=== PATIENT | male | born 1970 | race Caucasian/White ===

== ENCOUNTER 2019-10-17 00:26 | Emergency (ER) | payer MEDICARE, MEDICAID, SELFPAY ==
[2019-10-17 00:35] VITALS: BP 133/68; PULSE 77; RESP 16; TEMP 36.8; O2SAT 98; BMI 25.0
--- NOTE | 2019-10-17 00:59 | XR_ITS ---
WS: [id number] PORTABLE CHEST HISTORY: dyspnea COMPARISON: 07/26/2019 Lungs are clear and well expanded. Benign granuloma RIGHT lower lobe. No pleural effusion or pneumoth orax. Cardiac size: Normal. Mediastinum/Aorta: Normal mediastinum. No osseous abnormality seen. XR/XR chest 1V portable [id number] IMPRESSION: Unremarkable portable chest.
--- NOTE | 2019-10-17 01:12 | ED_ITS ---
Entered by Gloria Smith, acting as scribe for Timmy Renee MD Oct 17, 2019 00:26 HPI - SOB/Dyspnea General: Chief Complaint: Shortness of Breath/Dyspnea Stated Complaint: SOB Time Seen by Provider: 10/17/19 01:09 Source: patient Mode of arrival: ambulatory Limitations: no limitations History of Present Illness: HPI Narrative: 49 yo m came to the er pov with family for sob. Onset was 4-5 days ago. Pt states that he can get up and move around but once he sets down he gets sob. MD elicited complaint: shortness of breath Pertinent past history: COPD Onset (ago): day(s) (today) Associated symptoms: Deny abdominal pain, chest pain, fever(s), polyuria or vomiting Review of Systems Const: Denies: fever or chills Eyes: Denies: change in vision ENMT: Denies: throat pain or mouth pain Card: Denies: chest pain Resp: Reports: shortness of breath GI: Denies: abdominal pain or vomiting Musc: Denies: back pain or joint pain Skin/Breast: Denies: rash Neuro: Denies: headache Psych: Denies: depression Endo: Denies: excessive urination Efren/Lymph: Denies: easy bruising All/Imm: Denies: hives PFSH ED PFSH: Statuses (acute, chronic, etc) shown below reflect problem list status as previously entered and may not be historically accurate Social History Smoking and tobacco status: former smoker Physical Exam Const: COMMON NORMALS: no apparent distress and healthy appearing HENMT: COMMON NORMALS: normocephalic and external nose normal HEAD & SCALP: normocephalic NOSE: external nose normal and no nasal discharge (nasal dischage) Eye: COMMON NORMALS: PERRL PUPIL: Yes PERRL Neck/C-Spine: COMMON NORMALS: full ROM and no lymphadenopathy Chest: COMMONS NORMALS: inspection of chest normal Resp: COMMON NORMALS: normal respiratory effort and clear to auscultation hannah aterally AUSCULTATION: clear to auscultation bilaterally Cardio: COMMON NORMALS: regular rate and regular rhythm RATE: regular rate RHYTHM: regular rhythm GI: COMMON NORMALS: soft to palpation PALPATION: Yes soft Extremity: COMMON NORMALS: normal to inspection, full ROM and normal capillary refill Psych: COMMON NORMALS: mental status grossly normal and cooperative Skin: COMMON NORMALS: no rashes or lesions noted GENERAL SKIN EXAM: no rashes or lesions noted Course Vital Signs: Vital signs: Vital Signs Temperature 97.6 F 10/17/19 02:48 Pulse Rate 70 10/17/19 02:48 Respiratory Rate 18 10/17/19 02:48 Blood Pressure 117/60 10/17/19 02:48 Pulse Oximetry 98 10/17/19 02:48 MDM - SOB/Dyspnea MDM Narrative: Medical decision making narrative: Patient presents here with shortness of breath that is mainly lay flat. Patient has no signs of congestive heart failure here. Patient has no signs of pulmonary embolism or acute cardiac cause. Patient is asymptomatic here and is well-appearing. X-rays normal. He is to follow-up with his primary care doctor in 3 to 5 days return to ER if worsening. He understands and agrees to plan. Lab Data: Labs: Lab Results 10/17/19 10/17/19 10/17/19 Range/Units 01:14 01:14 01:14 WBC 7.5 (4.0-10.0) 10^3/ uL RBC 4.26 (4.1-5.3) 10^6/u L Hgb 13.1 (11.7-16.6) g/dL Hct 38.6 L (42.0-52.0) % MCV 90.6 (80-94) fL MCH 30.8 (28.0-34.0) pg MCHC 33.9 (30.0-36.0) g/dL RDW 12.8 (12.1-15.1) % Plt Count 229 (130-400) 10^3/c mm MPV 10.1 (7.4-10.4) fL Neut % (Auto) 70.4 % Lymph % (Auto) 21.0 % Plumas % (Auto) 7.6 % Eos % (Auto) 0.5 % Baso % (Auto) 0.4 % Neut # (Auto) 5.3 (1.8-7.7) 10^3/u L Lymph # (Auto) 1.6 (0.8-4.8) 10^3/u L Plumas # (Auto) 0.6 (0.2-0.9) 10^3/u L Eos # (Auto) 0.0 (0.0-0.8) 10^3/u L Baso # (Auto) 0.0 (0.0-0.1) 10^3/u L Nucleated RBC % (a uto) 0 % Nucleated RBCs # 0.0 /100WBC Sodium 137 (136-145) mmol/L Potassium 3.6 (3.5-5.1) mmol/L Chloride 99 (98-107) mmol/L Carbon Dioxide 25 (22-29) mmol/L Anion Gap 16.6 (5-19) BUN 15 (6-20) mg/dL Creatinine 1.0 (0.7-1.2) mg/dL GFR Calculation 79.1 L (90-130) mL/min Glucose 121 H (74-109) mg/dL Calcium 9.7 (8.6-10.0) mg/Dl Total Bilirubin 0.3 (0.15-1.2) mg/dL AST 16 (0-40) U/L ALT 13 (0-41) U/L Alkaline Phosphata se 90 (40-130) IU/L Troponin T Baselin e 6 (0-15) ng/mL NT-Pro-B Natriuret Pep 12 (0-125) pg/mL Total Protein 7.0 (6.6-8.7) g/dL Albumin 4.7 (3.5-5.2) g/dL Globulin 2.3 (1.3-4.6) g/dL EKG Data^: EKG 1: Attestation: I personally reviewed and interpreted this EKG as follows: EKG Interpretation Date: 10/17/19 EKG interpretation time: 01:23 Interpretation: nsr hr [address] or t wave abnormalities qrs 99 qtc 398 Discharge Plan Discharge Patient Disposition: Home, Self-Care Clinical Impression: Acute dyspnea Condition: Stable Prescriptions: No Action oxycodone 10 mg Tablet 10 mg PO Q4H PRN (Reason: Pain) RF: 0 Muscle Relaxer RF: 0 Discharge Orders: Discharge Order (Routine); Ordered 10/17/19 Ordered By: Timmy Renee Referrals: Mariana Phillips, BOAT OUTFITTING SUPERVISOR-C [Primary Care Provider] - 4-7 days Discharge Diet: Advance as tolerated Discharge Activity: Resume usual activity Discharge Date/Time: 10/17/19 02:49 Coding Level of Care Code ED Small Animal Veterinarian for Chg Fwd Exam Problem Focused The documentation recorded by the Luis leblanc Stephanie Lyn, accurately reflects the service I personally performed and the decisions made by me, Timmy Renee MD Oct 17, 2019 00:26
[2019-10-17 01:23] VITALS: BP 130/69; PULSE 71; RESP 18; O2SAT 97
[2019-10-17 01:40] LABS: Basophils % 0.4 %; Eosinophils % 0.5 %; Hematocrit 38.6 % (42.0-52.0); Hemoglobin 13.1 g/dL (11.7-16.6); Lymphocytes # 1.6 10^3/uL (0.8-4.8); Mean Corpuscular HGB Conc 33.9 g/dL (30.0-36.0); Mean Corpuscular Hemoglobin 30.8 pg (28.0-34.0); Mean Corpuscular Volume 90.6 fL (80-94); Mean Platelet Volume 10.1 fL (7.4-10.4); Monocytes # 0.6 10^3/uL (0.2-0.9); Monocytes % 7.6 %; Neutrophils # 5.3 10^3/uL (1.8-7.7); Neutrophils % 70.4 %; Nucleated Red Blood Cells % 0 %; Platelet Count 229 10^3/cmm (130-400); Red Blood Count 4.26 10^6/uL (4.1-5.3); Red Cell Distribution Width 12.8 % (12.1-15.1); White Blood Count 7.5 10^3/uL (4.0-10.0)
[2019-10-17 02:08] LABS: Troponin(5th) Baseline 6 ng/mL (0-15)
[2019-10-17 02:15] LABS: Alanine Aminotransferase 13 U/L (0-41); Albumin Level 4.7 g/dL (3.5-5.2); Alkaline Phosphatase 90 IU/L (40-130); Anion Gap 16.6 (5-19); Aspartate Amino Transferase 16 U/L (0-40); Blood Urea Nitrogen 15 mg/dL (6-20); Calcium 9.7 mg/Dl (8.6-10.0); Carbon Dioxide 25 mmol/L (22-29); Chloride 99 mmol/L (98-107); Globulin 2.3 g/dL (1.3-4.6); Glomerular Filtration Rate 79.1 mL/min (90-130); Glucose 121 mg/dL (74-109); NT Pro B Type Natriuretic Pept 12 pg/mL (0-125); Potassium 3.6 mmol/L (3.5-5.1); Sodium 137 mmol/L (136-145); Total Bilirubin 0.3 mg/dL (0.15-1.2)
[2019-10-17 02:48] VITALS: BP 117/60; PULSE 70; RESP 18; TEMP 36.4; O2SAT 98
--- NOTE | 2019-10-17 07:00 | ECG_ITS ---
Measurements Intervals [place] Rate: 68 P: 41 OH: 129 QRS: 65 QRSD: 99 T: 53 QT: 381 QTc: [address] DEPRESSION [0.05+ mV ST DEPRESSION] No previous ECG available for comparison Electronically Signed On 10-17-2019 19:23:00 ANCILLARY SERVICES MANAGER THERAPY by Rhoda Bell M.D. [email or web address]
== END 2019-10-17 02:49 | disposition home or self-care (01) ==
PROVIDERS: Emergency Provider Emergency Medicine; Family Provider Nurse Practitioner; PCP Nurse Practitioner
DX: R06.00 Dyspnea, unspecified (principal); Z87.891 Personal history of nicotine dependence; R07.9 Chest pain, unspecified
CPT/HCPCS: 36415; 71045; 80053; 83880; 84484; 85025; 93005; 99282; 99283

== ENCOUNTER → 2019-10-27 09:38 | Outpatient (BNVA) | payer MEDICARE, MEDICAID, SELFPAY | PROVIDERS: Family Provider Nurse Practitioner; PCP Nurse Practitioner; Visit Provider Anesthesiology | DX: G89.29 Other chronic pain (principal); M48.061 Spinal stenosis, lumbar region without neurogenic claudication; M47.816 Spondylosis without myelopathy or radiculopathy, lumbar region; M51.37 Other intervertebral disc degeneration, lumbosacral region; G56.03 Carpal tunnel syndrome, bilateral upper limbs; J44.9 Chronic obstructive pulmonary disease, unspecified; Z79.891 Long term (current) use of opiate analgesic | CPT/HCPCS: 99214 ==

== ENCOUNTER 2019-11-09 12:36 | Outpatient (CLI) | payer MEDICARE, MEDICAID, SELFPAY ==
--- NOTE | 2019-11-09 12:45 | USCV_ITS ---
Arthur Trujillo Age: 49 Gender: M : 1970 Exam Date: 11/09/2019 13:15 Ordering Phys: Elyse Livingston Technologist: Margret Segovia [place]am Location[place] [facility] [place] Indication: PERSISTENT SHORTNESS OF BREATH. WORSE WHEN SUPINE BP: / HR: 56 Rhythm: Sinus Technical Quality: Adequate MEASUREMENTS (Male / Female) Normal Values 2D ECHO LV Diastolic Diameter PLAX 4.6 cm 4.2 - 5.9 / 3.9 - 5.3 cm LV Systolic Diameter PLAX 3.5 cm LV Chamber Size 3.9 cm IVS Diastolic Thickness 1.1 cm 0.6 - 1.0 / 0.6 - 0.9 cm IVS Systolic Thickness 1.5 cm LVPW Diastolic Thickness 1.2 cm 0.6 - 1.0 / 0.6 - 0.9 cm LVPW Systolic Thickness 1.4 cm RV Chamber Size 3.2 cm LVOT Diameter 2.1 cm LV Ejection Fraction 2D Teich 46.4 % LV Ejection Fraction MOD 2C 49.0 % LV Ejection Fraction 2C AL 46.1 % LA Diameter 3.5 cm LA Width 3.2 cm LA Height 3.9 cm RA Width 4.2 cm RA Height 3.3 cm Aorta at Sinotubular Diameter 3.5 cm M-MODE LV Diastolic Diameter MM 4.9 cm 4.2 - 5.9 / 3.9 - 5.3 cm LV Systolic Diameter MM 3.6 cm LV Ejection Fraction MM Teich 52.7 % IVS Diastolic Thickness MM 1.0 cm 0.6 - 1.0 / 0.6 - 0.9 cm IVS Systolic Thickness MM 1.5 cm LVPW Diastolic Thickness MM 0.9 cm 0.6 - 1.0 / 0.6 - 0.9 cm LVPW Systolic Thickness MM 1.3 cm RV Diastolic Diameter MM 1.9 cm Aortic Annulus Diameter 4.0 cm LA Ao Ratio MM 0.9 MV E Point Septal Separation 0.9 cm DOPPLER AV Peak Velocity 105.0 cm/s LVOT Peak Velocity 64.0 cm/s AV Area Cont Eq vti 1.9 cm squared AV Area Cont Eq pk 2.1 cm squared MV Area PHT 3.6 cm squared Mitral E to A Ratio 1.0 MV E' Velocity 11.0 cm/s Mitral E to MV E' Ratio 5.2 Mitral E to LV E' Lateral Ratio 5.3 Mitral E to LV E' Septal Ratio 5.1 TR Peak Velocity 138.1 cm/s TR Peak Gradient 7.6 mmHg TR Mean Velocity 97.8 cm/s TR Mean Gradient 4.1 mmHg TR Velocity Time Integral 33.4 cm TV Peak E Velocity 63.0 cm/s Right Atrial Pressure 3.0 mmHg Pulmonary Artery Systolic Pressu 10.6 mmHg PV Peak Velocity 72.0 cm/s RV Acceleration Time 0.2 s RV Ejection Time 0.3 s RV AcT/ET 0.6 FINDINGS Left Ventricle Normal left ventricular size, systolic function and wall thickness, with no regional wall motion abnormalities. Normal left ventricular wall thickness. Normal diastolic filling pattern. Left ventricular ejection fraction is estimated at 55 %. Right Ventricle Normal right ventricular size and systolic function. Normal right ventricular systolic pressure. Right Atrium The right atrium is normal in size. Left Atrium The left atrium is normal in size. Mitral Valve Structurally normal mitral valve without significant stenosis or prolapse. There is no mitral regurgitation. Aortic Valve Structurally normal aortic valve without significant sclerosis or stenosis. There is no aortic regurgitation. Tricuspid Valve Structurally normal tricuspid valve. Trace tricuspid valve regurgitation. Pulmonic Valve Pulmonic valve not well visualized. Pericardium Normal pericardium without effusion. Aorta Normal ascending aorta dimension. CONCLUSIONS Normal left ventricular size, systolic function and wall thickness, with no regional wall motion abnormalities. Normal left ventricular wall thickness. Normal diastolic filling pattern. Left ventricular ejection fraction is estimated at 55 %. There are no prior echocardiogram studies to compare. Dr. Abdelrahman Brown MD (Electronically Signed) Final Date: 09 November 2019 17:22 S
== END 2019-11-09 12:37 | disposition home or self-care (01) ==
LOC: US 12:39
PROVIDERS: Family Provider Nurse Practitioner; PCP Nurse Practitioner; Visit Provider Nurse Practitioner Family
DX: I07.1 Rheumatic tricuspid insufficiency (principal); R06.02 Shortness of breath; J44.9 Chronic obstructive pulmonary disease, unspecified
CPT/HCPCS: 93306

== ENCOUNTER 2019-12-05 12:00 | Outpatient (CLI) | payer MEDICARE, MEDICAID, SELFPAY | END 2019-12-05 12:01 | disposition home or self-care (01) | LOC: SLEEP 12-06 11:31 | PROVIDERS: Family Provider Nurse Practitioner; PCP Nurse Practitioner; Visit Provider Internal Medicine Critical Care Medicine | DX: G47.33 Obstructive sleep apnea (adult) (pediatric) (principal) | CPT/HCPCS: G0399 ==

== ENCOUNTER → 2019-12-20 08:55 | Outpatient (BNVA) | payer MEDICARE, MEDICAID, SELFPAY | PROVIDERS: Family Provider Nurse Practitioner; PCP Nurse Practitioner; Visit Provider Nurse Practitioner | DX: G89.29 Other chronic pain (principal); M54.5 Low back pain; Z79.891 Long term (current) use of opiate analgesic; Z87.891 Personal history of nicotine dependence | CPT/HCPCS: 99213 ==

== ENCOUNTER → 2020-04-09 08:46 | Outpatient (BNVA) | payer MEDICARE, MEDICAID, SELFPAY | PROVIDERS: Family Provider Nurse Practitioner; PCP Nurse Practitioner; Visit Provider Anesthesiology | DX: G89.29 Other chronic pain (principal); M48.061 Spinal stenosis, lumbar region without neurogenic claudication; M47.816 Spondylosis without myelopathy or radiculopathy, lumbar region; M54.16 Radiculopathy, lumbar region; M51.37 Other intervertebral disc degeneration, lumbosacral region; F17.210 Nicotine dependence, cigarettes, uncomplicated; Z79.891 Long term (current) use of opiate analgesic | CPT/HCPCS: 99214 ==

== ENCOUNTER 2020-05-15 06:44 | Outpatient (CLI) | payer MEDICARE, MEDICAID, SELFPAY ==
--- NOTE | 2020-05-15 07:15 | USCV_ITS ---
Arthur Trujillo Age: 49 Gender: M : 1970 Exam Date: 05/15/2020 07:20 Ordering Phys: Noble Bertrand MD Technologist: Keith Melton Exam Location: [facility] [place] Indication: SOB BP: 124 / 73 HR: 71 Rhythm: Sinus Technical Quality: Good MEASUREMENTS (Male / Female) Normal Values 2D ECHO LV Diastolic Diameter PLAX 4.2 cm 4.2 - 5.9 / 3.9 - 5.3 cm LV Systolic Diameter PLAX 3.2 cm IVS Diastolic Thickness 0.9 cm 0.6 - 1.0 / 0.6 - 0.9 cm IVS Systolic Thickness 1.2 cm LVPW Diastolic Thickness 1.0 cm 0.6 - 1.0 / 0.6 - 0.9 cm LVPW Systolic Thickness 1.4 cm LVOT Diameter 2.1 cm LV Ejection Fraction 2D Teich 47.5 % LV Ejection Fraction MOD 2C 62.1 % LV Ejection Fraction 2C AL 62.5 % LA Diameter 3.5 cm LA Width 3.7 cm LA Height 4.4 cm RA Width 3.4 cm RA Height 3.9 cm M-MODE LV Diastolic Diameter MM 5.7 cm 4.2 - 5.9 / 3.9 - 5.3 cm LV Systolic Diameter MM 4.2 cm LV Ejection Fraction MM Teich 52.7 % IVS Diastolic Thickness MM 0.9 cm 0.6 - 1.0 / 0.6 - 0.9 cm IVS Systolic Thickness MM 1.2 cm LVPW Diastolic Thickness MM 1.2 cm 0.6 - 1.0 / 0.6 - 0.9 cm LVPW Systolic Thickness MM 1.6 cm RV Diastolic Diameter MM 1.8 cm Aortic Annulus Diameter 3.5 cm LA Ao Ratio MM 1.0 MV E Point Septal Separation 1.5 cm DOPPLER AV Peak Velocity 114.0 cm/s LVOT Peak Velocity 87.0 cm/s AV Area Cont Eq vti 3.0 cm squared AV Area Cont Eq pk 2.6 cm squared MV Area PHT 2.7 cm squared Mitral E to A Ratio 1.3 MV E' Velocity 14.0 cm/s Mitral E to MV E' Ratio 7.0 Mitral E to LV E' Lateral Ratio 6.1 Mitral E to LV E' Septal Ratio 8.2 TR Peak Velocity 140.0 cm/s TR Peak Gradient 7.8 mmHg TV Peak E Velocity 104.0 cm/s Right Atrial Pressure 3.0 mmHg Pulmonary Artery Systolic Pressu 10.8 mmHg PV Peak Velocity 95.0 cm/s FINDINGS Left Ventricle Normal left ventricular size and systolic function, EF 59 %. No regional wall motion abnormalities. Right Ventricle Normal right ventricular size and systolic function. Right Atrium Normal right atrial size. Left Atrium Normal left atrial size. Mitral Valve Thickened mitral valve. Aortic Valve No gross abnormalities noted Tricuspid Valve No gross abnormalities noted Pulmonic Valve Structurally normal pulmonic valve without significant stenosis. There is no pulmonic regurgitation. Pericardium Normal pericardium without effusion. Aorta Normal ascending aorta dimension. CONCLUSIONS Normal left ventricular size and systolic function, EF 59 %. No regional wall motion abnormalities. No significant stenotic or regurgitant lesions. Normal cardiac chamber sizes. There is no pericardial effusion. There are no intracardiac masses. Compared to the study from 11/09/2019, there may not be a significant change Dr Gold Pacheco MD FAC (Electronically Signed) Final Date: 15 May 2020 17:12 S
== END 2020-05-15 06:45 | disposition home or self-care (01) ==
PROVIDERS: PCP Nurse Practitioner; Visit Provider Internal Medicine Critical Care Medicine
DX: R06.02 Shortness of breath (principal)
CPT/HCPCS: C8929

== ENCOUNTER → 2020-06-18 09:07 | Outpatient (BNVA) | payer MEDICARE, MEDICAID, SELFPAY | PROVIDERS: Family Provider Nurse Practitioner; PCP Nurse Practitioner; Visit Provider Anesthesiology | DX: G89.29 Other chronic pain (principal); M48.061 Spinal stenosis, lumbar region without neurogenic claudication; M47.816 Spondylosis without myelopathy or radiculopathy, lumbar region; M54.16 Radiculopathy, lumbar region; M51.37 Other intervertebral disc degeneration, lumbosacral region; F17.210 Nicotine dependence, cigarettes, uncomplicated; Z79.891 Long term (current) use of opiate analgesic | CPT/HCPCS: 99213; 99214 ==

== ENCOUNTER → 2020-07-05 11:30 | Outpatient (BNVA) | payer MEDICARE, MEDICAID, SELFPAY | PROVIDERS: PCP Nurse Practitioner; Visit Provider Internal Medicine | DX: Z20.828 Contact with and (suspected) exposure to other viral communicable diseases (principal) | CPT/HCPCS: 87635 ==

== ENCOUNTER 2020-07-08 06:49 | Outpatient (CLI) | payer MEDICARE, MEDICAID, SELFPAY ==
--- NOTE | 2020-07-08 14:19 | PFTS_ITS ---
Date of Study:07/08/20 Date of Dictation: MECHANICS: Forced vital capacity (FVC) is normal. Forced expiratory volume in one second (FEV1) is normal. FEV1/FVC is normal. FLOW VOLUME LOOP: Normal. LUNG VOLUMES: Not measured DIFFUSING CAPACITY FOR CARBON MONOXIDE: Not measured The maximal voluntary ventilation, maximal expiratory inspiratory pressures are normal. INTERPRETATION: Spirometry is normal. The maximal voluntary ventilation, maximal expiratory and inspiratory pressures are normal. MTDD
== END 2020-07-08 06:50 | disposition home or self-care (01) ==
LOC: RT 06:52
PROVIDERS: PCP Nurse Practitioner; Visit Provider Internal Medicine Critical Care Medicine
DX: R06.02 Shortness of breath (principal)
CPT/HCPCS: 94010

== ENCOUNTER 2020-07-23 20:00 | Outpatient (CLI) | payer MEDICARE, MEDICAID, SELFPAY | END 2020-07-23 20:01 | disposition home or self-care (01) | LOC: SLEEP 07-24 08:13 | PROVIDERS: PCP Nurse Practitioner; Visit Provider Internal Medicine Critical Care Medicine | DX: G47.30 Sleep apnea, unspecified (principal) | CPT/HCPCS: 95811 ==

== ENCOUNTER → 2020-08-13 09:09 | Outpatient (BNVA) | payer MEDICARE, MEDICAID, SELFPAY | PROVIDERS: Family Provider Nurse Practitioner; PCP Nurse Practitioner; Visit Provider Anesthesiology | DX: G89.29 Other chronic pain (principal); M48.061 Spinal stenosis, lumbar region without neurogenic claudication; M47.816 Spondylosis without myelopathy or radiculopathy, lumbar region; M54.16 Radiculopathy, lumbar region; M51.37 Other intervertebral disc degeneration, lumbosacral region; F17.210 Nicotine dependence, cigarettes, uncomplicated; Z79.891 Long term (current) use of opiate analgesic | CPT/HCPCS: 99213; 99214 ==

== ENCOUNTER → 2020-10-15 09:42 | Outpatient (BNVA) | payer MEDICARE, MEDICAID, SELFPAY | PROVIDERS: Family Provider Nurse Practitioner; PCP Nurse Practitioner; Visit Provider Anesthesiology | DX: G89.29 Other chronic pain (principal); M48.061 Spinal stenosis, lumbar region without neurogenic claudication; M47.816 Spondylosis without myelopathy or radiculopathy, lumbar region; M51.37 Other intervertebral disc degeneration, lumbosacral region; M54.16 Radiculopathy, lumbar region; F17.210 Nicotine dependence, cigarettes, uncomplicated; Z79.891 Long term (current) use of opiate analgesic | CPT/HCPCS: 99213 ==

== ENCOUNTER → 2020-12-05 08:21 | Outpatient (BNVA) | payer MEDICARE, MEDICAID, SELFPAY | PROVIDERS: Family Provider Nurse Practitioner; PCP Nurse Practitioner; Visit Provider Anesthesiology | DX: G89.29 Other chronic pain (principal); M54.16 Radiculopathy, lumbar region; M48.061 Spinal stenosis, lumbar region without neurogenic claudication; M47.816 Spondylosis without myelopathy or radiculopathy, lumbar region; M51.37 Other intervertebral disc degeneration, lumbosacral region; F17.210 Nicotine dependence, cigarettes, uncomplicated; Z79.891 Long term (current) use of opiate analgesic | CPT/HCPCS: 62323 ==

== ENCOUNTER → 2020-12-17 09:29 | Outpatient (BNVA) | payer MEDICARE, MEDICAID, SELFPAY | PROVIDERS: Family Provider Nurse Practitioner; PCP Nurse Practitioner; Visit Provider Anesthesiology | DX: G89.29 Other chronic pain (principal); M48.061 Spinal stenosis, lumbar region without neurogenic claudication; M47.816 Spondylosis without myelopathy or radiculopathy, lumbar region; M51.37 Other intervertebral disc degeneration, lumbosacral region; M54.16 Radiculopathy, lumbar region; F17.210 Nicotine dependence, cigarettes, uncomplicated; Z79.891 Long term (current) use of opiate analgesic | CPT/HCPCS: 99213 ==

== ENCOUNTER → 2021-01-03 11:19 | Outpatient (BNVA) | payer MEDICARE, MEDICAID, SELFPAY | PROVIDERS: Family Provider Nurse Practitioner; PCP Nurse Practitioner; Visit Provider Nurse Practitioner | DX: Z12.5 Encounter for screening for malignant neoplasm of prostate (principal); J44.9 Chronic obstructive pulmonary disease, unspecified; Z13.6 Encounter for screening for cardiovascular disorders; G47.00 Insomnia, unspecified; Z89.511 Acquired absence of right leg below knee | CPT/HCPCS: 80053; 80061; 81000; G0103 ==

== ENCOUNTER → 2021-02-19 08:40 | Outpatient (BNVA) | payer MEDICARE, MEDICAID, SELFPAY | PROVIDERS: Family Provider Nurse Practitioner; PCP Nurse Practitioner; Visit Provider Nurse Practitioner | DX: G89.29 Other chronic pain (principal); M54.16 Radiculopathy, lumbar region; M51.37 Other intervertebral disc degeneration, lumbosacral region; M48.061 Spinal stenosis, lumbar region without neurogenic claudication; M47.816 Spondylosis without myelopathy or radiculopathy, lumbar region; Z89.511 Acquired absence of right leg below knee; F17.210 Nicotine dependence, cigarettes, uncomplicated; Z79.891 Long term (current) use of opiate analgesic; Z71.6 Tobacco abuse counseling | CPT/HCPCS: 99213; 99214 ==

== ENCOUNTER → 2021-04-18 08:44 | Outpatient (BNVA) | payer MEDICARE, MEDICAID, SELFPAY | PROVIDERS: Family Provider Nurse Practitioner; PCP Nurse Practitioner; Visit Provider Nurse Practitioner | DX: G89.29 Other chronic pain (principal); M54.16 Radiculopathy, lumbar region; M51.37 Other intervertebral disc degeneration, lumbosacral region; M48.061 Spinal stenosis, lumbar region without neurogenic claudication; M47.816 Spondylosis without myelopathy or radiculopathy, lumbar region; F17.210 Nicotine dependence, cigarettes, uncomplicated; Z79.891 Long term (current) use of opiate analgesic; Z71.6 Tobacco abuse counseling | CPT/HCPCS: 99214; 99406 ==

== ENCOUNTER → 2021-06-19 09:19 | Outpatient (BNVA) | payer MEDICARE, MEDICAID, SELFPAY | PROVIDERS: Family Provider Nurse Practitioner; PCP Nurse Practitioner; Visit Provider Nurse Practitioner | DX: G89.29 Other chronic pain (principal); M54.16 Radiculopathy, lumbar region; M51.37 Other intervertebral disc degeneration, lumbosacral region; M47.816 Spondylosis without myelopathy or radiculopathy, lumbar region; M48.061 Spinal stenosis, lumbar region without neurogenic claudication; F17.210 Nicotine dependence, cigarettes, uncomplicated; Z79.891 Long term (current) use of opiate analgesic; Z71.6 Tobacco abuse counseling | CPT/HCPCS: 99214 ==

== ENCOUNTER → 2021-07-03 08:42 | Outpatient (BNVA) | payer MEDICARE, MEDICAID, SELFPAY | PROVIDERS: Family Provider Nurse Practitioner; PCP Nurse Practitioner; Visit Provider Anesthesiology | DX: G89.29 Other chronic pain (principal); M47.816 Spondylosis without myelopathy or radiculopathy, lumbar region; M48.061 Spinal stenosis, lumbar region without neurogenic claudication; M51.37 Other intervertebral disc degeneration, lumbosacral region; M54.16 Radiculopathy, lumbar region; Z79.891 Long term (current) use of opiate analgesic | CPT/HCPCS: 62323; J1040; J3490 ==

== ENCOUNTER → 2021-07-09 08:10 | Outpatient (BNVA) | payer MEDICARE, MEDICAID, SELFPAY | PROVIDERS: Family Provider Nurse Practitioner; PCP Nurse Practitioner; Visit Provider Nurse Practitioner | DX: Z13.6 Encounter for screening for cardiovascular disorders (principal) | CPT/HCPCS: 80053; 80061; 85025 ==

== ENCOUNTER → 2021-08-19 09:05 | Outpatient (BNVA) | payer MEDICARE, MEDICAID, SELFPAY | PROVIDERS: Family Provider Nurse Practitioner; PCP Nurse Practitioner; Visit Provider Anesthesiology | DX: G89.29 Other chronic pain (principal); M48.061 Spinal stenosis, lumbar region without neurogenic claudication; M47.816 Spondylosis without myelopathy or radiculopathy, lumbar region; M51.37 Other intervertebral disc degeneration, lumbosacral region; M54.16 Radiculopathy, lumbar region; F17.200 Nicotine dependence, unspecified, uncomplicated; Z79.891 Long term (current) use of opiate analgesic; Z71.6 Tobacco abuse counseling | CPT/HCPCS: 99214 ==

== ENCOUNTER → 2021-10-07 10:12 | Outpatient (BNVA) | payer MEDICARE, MEDICAID, SELFPAY | PROVIDERS: Family Provider Nurse Practitioner; PCP Nurse Practitioner; Visit Provider Anesthesiology | DX: G89.29 Other chronic pain (principal); M48.061 Spinal stenosis, lumbar region without neurogenic claudication; M47.816 Spondylosis without myelopathy or radiculopathy, lumbar region; M51.37 Other intervertebral disc degeneration, lumbosacral region; M54.16 Radiculopathy, lumbar region; F17.200 Nicotine dependence, unspecified, uncomplicated; Z79.891 Long term (current) use of opiate analgesic | CPT/HCPCS: 99214 ==

== ENCOUNTER → 2022-01-05 09:48 | Outpatient (BNVA) | payer MEDICARE, MEDICAID, SELFPAY | PROVIDERS: Family Provider Nurse Practitioner; PCP Nurse Practitioner; Visit Provider Internal Medicine Critical Care Medicine | DX: J98.4 Other disorders of lung (principal); R06.02 Shortness of breath; G47.30 Sleep apnea, unspecified; F17.210 Nicotine dependence, cigarettes, uncomplicated | CPT/HCPCS: 99214 ==

== ENCOUNTER 2022-02-02 09:08 | Outpatient (CLI) | payer MEDICARE, MEDICAID, SELFPAY ==
--- NOTE | 2022-02-02 09:25 | MR_ITS ---
WS: [id number] MRI LUMBAR SPINE NONCONTRAST TECHNIQUE: Sagittal T1, T2 and STIR imaging. Axial T1 and T2 imaging. CLINICAL INFORMATION: LUMBAR DDD COMPARISON: July 22, 2018 FINDINGS: Mild lumbar curve. No acute compression. Disc space narrowing worse L5-S1 with endplate degenerative changes. This is similar in appearance to 2018. Alignment is unchanged. L1-L2: Normal. L2-L3: Mild annular bulging. Shallow central protrusion with slight effacement of ventral thecal sac. Impingement traversing LEFT L3 nerve root. Small LEFT foraminal protrusion with mild LEFT foraminal narrowing. RIGHT foramen is patent. L3-L4: Mild annular bulging. Mild facet arthropathy. Spinal canal and foramen are patent. L4-L5: Mild annular bulging with slight effacement of ventral thecal sac. Slight impingement traversi ng L5 nerve roots bilaterally. Mild to moderate facet arthropathy. Foramen are patent. L5-S1: Mild disc bulging with osteophytic ridging. Slight impingement traversing S1 nerve roots bilat erally. Mild facet arthropathy. Mild bilateral foraminal narrowing. Visualized pelvic bony structures: Normal. Paravertebral soft tissues: Normal. MR/MR lumbar spine wo con* [id number] IMPRESSION: 1. Mild lumbar curve. No acute compression. No high-grade central canal stenos is. 2. Mild annular bulging L2-L3 with impingement on the LEFT subarticular recess and traversing LEFT L3 nerve root progressed slightly compared to previous. Mi ld LEFT L2-L3 foraminal narrowing. 3. Mild annular bulging L4-L5 with slight impingement traversing L5 nerve root s bilaterally LEFT greater than RIGHT. This is slightly progressed compared to previous 4. Mild annular bulge L5-S1 with osteophytic ridging. Slight impingement trave rsing S1 nerve roots bilaterally appears unchanged. Mild bilateral foraminal na rrowing.
== END 2022-02-02 09:09 | disposition home or self-care (01) ==
LOC: RAD 09:11
PROVIDERS: PCP Nurse Practitioner; Visit Provider General Practice
DX: M51.36 Other intervertebral disc degeneration, lumbar region (principal)
CPT/HCPCS: 72148

== ENCOUNTER → 2022-04-27 11:24 | Outpatient (BNVA) | payer MEDICARE, MEDICAID, SELFPAY | PROVIDERS: PCP Family Medicine; Visit Provider Nurse Practitioner | DX: J44.9 Chronic obstructive pulmonary disease, unspecified (principal); Z89.511 Acquired absence of right leg below knee; Z12.5 Encounter for screening for malignant neoplasm of prostate; Z13.6 Encounter for screening for cardiovascular disorders; F17.200 Nicotine dependence, unspecified, uncomplicated | CPT/HCPCS: 80053; 80061; 85025; G0103 ==

== ENCOUNTER 2022-06-16 20:00 | Outpatient (CLI) | payer MEDICARE, MEDICAID, SELFPAY | END 2022-06-16 20:01 | disposition home or self-care (01) | LOC: SLEEP 06-17 08:41 | PROVIDERS: PCP Family Medicine; Visit Provider Specialist | DX: G47.33 Obstructive sleep apnea (adult) (pediatric) (principal) | CPT/HCPCS: 95810 ==

== ENCOUNTER → 2022-07-16 08:43 | Outpatient (BNVA) | payer MEDICARE, MEDICAID, SELFPAY | PROVIDERS: PCP Family Medicine; Visit Provider Nurse Practitioner | DX: J44.9 Chronic obstructive pulmonary disease, unspecified (principal); E78.1 Pure hyperglyceridemia; F17.200 Nicotine dependence, unspecified, uncomplicated | CPT/HCPCS: 80061; 85025 ==

== ENCOUNTER → 2022-10-13 09:51 | Outpatient (BNVA) | payer MEDICARE, MEDICAID, SELFPAY | PROVIDERS: PCP Family Medicine; Visit Provider Nurse Practitioner | DX: J44.9 Chronic obstructive pulmonary disease, unspecified (principal); F17.200 Nicotine dependence, unspecified, uncomplicated | CPT/HCPCS: 71046; 80053; 85025 ==

== ENCOUNTER → 2022-10-21 10:27 | Outpatient (BNVA) | payer MEDICARE, MEDICAID, SELFPAY | PROVIDERS: PCP Family Medicine; Visit Provider Internal Medicine Pulmonary Disease | DX: R06.09 Other forms of dyspnea (principal); J98.4 Other disorders of lung; J44.9 Chronic obstructive pulmonary disease, unspecified; F17.210 Nicotine dependence, cigarettes, uncomplicated; G47.33 Obstructive sleep apnea (adult) (pediatric) | CPT/HCPCS: 99214 ==

== ENCOUNTER 2023-01-11 06:01 | Outpatient (CLI) | payer MEDICARE, MEDICAID, SELFPAY ==
--- NOTE | 2023-01-11 | ECG_ITS ---
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 Interpretive Statements NAME OF STUDY: LEXISCAN SESTAMIBI STRESS TEST INDICATION: [Dyspnea; Chest Pain, ] Procedure: At the baseline, the blood pressure was 114/63 mmHg with a heart rate of 56 bpm. The electrocardiogram showed sinus bradycardia, normal axis with normal ST and T's. The Lexiscan was infused over a period of 20 seconds. A total of 0.4 mg of Lexiscan was infused. The stress phase was continued for a total of 5 minutes. Heart rate was at the end of stress phase was 79 bpm and a blood pressure of 109/59 mmHg. The EKG at the peak infusion revealed normal sinus rhythm with no significant ST-T wave changes. Sestamibi was injected 20 seconds after the Lexiscan infusion. Blood pressure at the end of recovery phase was 104/59 mmHg with a heart rate of 71 bpm. Conclusion: 1. Normal EKG response to Lexiscan infusion 2. No Lexiscan induced chest pain or cardiac arrhythmia. 3. Normal blood pressure and heart rate response. 4. Sestamibi/sestamibi perfusion scan pending; see separate report. Electronically Signed On 01-17-2023 14:50:30 CDT by Mani Barba M.D. [email or web address]
[2023-01-11 06:39] VITALS: BMI 26.2
--- NOTE | 2023-01-11 06:44 | NMCV_ITS ---
NM murali perf SPECT r/s* [id number] Arthur Trujillo Age: 52 Gender: M : 1970 Exam Date: 01/11/2023 07:11 Ordering Phys: Flip Saha MD Technologist: IZAIAH Chatterjee Exam Location: [facility] [place] Indications: SHORTNESS OF BREATH, NICOTINE DEPENDENCE STRESS TEST Please see separate stress test report in [facility] for full findings IMAGE PROTOCOL Rest/Stress 1 Lexiscan Day Radiopharmaceutical Dose (mCi) Administration Site Administered by Rest: Tc-99m 10.6 IV IZAIAH Boudreaux Sestamibi Stress:Tc-99m 32.4 IV IZAIAH Boudreaux Sestamibi Rest: 11-Jan-2023 60 Discovery 630 Stress: 11-Jan-2023 30 Discovery 630 0.4mg Lexiscan. Images obtained in supine and prone position. SPECT RESULTS Technical Quality: Excellent Raw Data Analysis: Normal Image Corrections: No attenuation or motion correction applied Summed Stress Score: 5 Summed Rest Score: 1 Summed Difference Score: 4 PERFUSION FINDINGS There is a medium sized area of partially reversible perfusion defect noted in the inferolateral and apical inferior wall. This is consistent with prior infarct with significant mayra-infarct ischemia in the left circumflex artery territory. FUNCTIONAL RESULTS (calculated via Gated SPECT) Stress Image LV EF (%): 58 Stress EDV (mL):128 TID: 1.17 Stress ESV (mL):54 FUNCTIONAL FINDINGS: There is normal left ventricular systolic function. IMPRESSIONS 1. 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 LV systolic function is normal Mani Barba MD (Electronically Signed) Final Date: 16 January 2023 10:47 S
[2023-01-11] MEDS: regadenoson 0.4 Mg/5 ml Syringe IVP (07:44)
[2023-01-11 07:57] VITALS: BP 104/59; PULSE 73
== END 2023-01-11 06:02 | disposition home or self-care (01) ==
PROVIDERS: PCP Family Medicine; Visit Provider Internal Medicine Pulmonary Disease
DX: R06.00 Dyspnea, unspecified (principal); R06.02 Shortness of breath; F17.210 Nicotine dependence, cigarettes, uncomplicated
CPT/HCPCS: 36415; 78452; 93017; 96374; A9500; J2785

== ENCOUNTER → 2023-02-08 12:22 | Outpatient (BNVA) | payer MEDICARE, MEDICAID, SELFPAY | PROVIDERS: PCP Family Medicine; Visit Provider Internal Medicine | DX: R06.09 Other forms of dyspnea (principal); F17.210 Nicotine dependence, cigarettes, uncomplicated | CPT/HCPCS: 93005; 99204 ==

== ENCOUNTER → 2023-04-09 09:16 | Outpatient (BNVA) | payer MEDICARE, MEDICAID, SELFPAY | PROVIDERS: PCP Family Medicine; Visit Provider Nurse Practitioner | DX: J44.9 Chronic obstructive pulmonary disease, unspecified (principal); E78.1 Pure hyperglyceridemia; F17.210 Nicotine dependence, cigarettes, uncomplicated; F17.200 Nicotine dependence, unspecified, uncomplicated | CPT/HCPCS: 80053; 80061; 85025 ==

== ENCOUNTER 2023-05-11 08:54 | Outpatient (CLI) | payer MEDICARE, MEDICAID, SELFPAY ==
--- NOTE | 2023-05-11 09:00 | CT_ITS ---
WS: [id number] LDCT LUNG CANCER SCREENING HISTORY: F17.210 - Nicotine dependence, cigarettes, uncomplicated TECHNIQUE: Axial imaging performed from the apices to 1 cm below the costophrenic angles. Coronal and sagittal reformats are submitted with axial MIP series. All CT scans at [facility] use at least one of these dose optimization techniques: automated exposure control; mA and/or kV adjustment per patient size (includes targeted exams where dose is matched to clinical indication); or iterativ e reconstruction. DLP: 63.39 mGy.cm DIvol: Mean CTDIvol: 1.20 (mGy) COMPARISON: 08/23/2019 Diagnostic quality: Satisfactory Lungs: Less than 3 mm nodule LEFT apex. Benign granuloma RIGHT lower lobe with focal scar. No pulmona ry mass or additional nodules. No pneumonia. No endobronchial lesions. Mild pulmonary hyperexpansion from centrilobular emphysema. Heart: Normal size heart with no pericardial effusion.. Other findings: No mediastinal widening or adenopathy. Mild increase in thoracic kyphosis. CT/CT lung screening [id number] IMPRESSION: LUNG-RADS: 2-Benign Appearance or Behavior FOLLOW UP: 12 Month: Continue annual screening with LDCT OTHER FINDINGS (S MODIFIER): None.
== END 2023-05-11 08:55 | disposition home or self-care (01) ==
LOC: RAD 08:56
PROVIDERS: PCP Family Medicine; Visit Provider Nurse Practitioner
DX: Z12.2 Encounter for screening for malignant neoplasm of respiratory organs (principal); F17.210 Nicotine dependence, cigarettes, uncomplicated
CPT/HCPCS: 71271; 80053; 80061; 85025

== ENCOUNTER → 2023-11-02 11:41 | Outpatient (BNVA) | payer MEDICARE, MEDICAID, SELFPAY | PROVIDERS: PCP Family Medicine; Visit Provider Nurse Practitioner | DX: J44.9 Chronic obstructive pulmonary disease, unspecified (principal); F17.200 Nicotine dependence, unspecified, uncomplicated; E78.1 Pure hyperglyceridemia; F32.9 Major depressive disorder, single episode, unspecified | CPT/HCPCS: 80053; 80061; 82607 ==

== ENCOUNTER → 2024-01-03 09:24 | Outpatient (BNVA) | payer MEDICARE, MEDICAID, SELFPAY | PROVIDERS: PCP Nurse Practitioner; Visit Provider Nurse Practitioner | DX: N18.2 Chronic kidney disease, stage 2 (mild); R73.9 Hyperglycemia, unspecified | CPT/HCPCS: 80048; 83036 ==

== ENCOUNTER 2024-01-25 13:56 | Outpatient (CLI) | payer MEDICARE, MEDICAID, SELFPAY ==
--- NOTE | 2024-01-25 14:15 | US_ITS ---
WS: [id number] RENAL ULTRASOUND HISTORY: N18.2 - Chronic kidney disease, stage 2 (mild) COMPARISON: None available. TECHNIQUE: 2-D and color Doppler imaging of the kidney submitted. Right kidney: 11.1 cm x 5.6 cm x 4.8 cm. Cortex: 1.5 cm Normal echogenicity with no hydronephrosis or mass. Left kidney: 10.9 cm x 5.3 cm x 4.5 cm. Cortex: 2.5 cm Normal echogenicity with no hydronephrosis or mass. Aorta: Normal. Urinary Bladder: Normal distention. IMPRESSION: Normal renal ultrasound.
== END 2024-01-25 13:57 | disposition home or self-care (01) ==
LOC: RAD 13:57
PROVIDERS: PCP Nurse Practitioner; Visit Provider Nurse Practitioner
DX: N18.2 Chronic kidney disease, stage 2 (mild) (principal)
CPT/HCPCS: 76770

== ENCOUNTER → 2024-05-31 09:41 | Outpatient (BNVA) | payer MEDICARE, MEDICAID, SELFPAY | PROVIDERS: PCP Nurse Practitioner; Visit Provider Nurse Practitioner | DX: N18.2 Chronic kidney disease, stage 2 (mild) (principal) | CPT/HCPCS: 80053; 83735 ==

== ENCOUNTER → 2024-11-22 09:02 | Outpatient (BNVA) | payer MEDICARE, MEDICAID, SELFPAY | PROVIDERS: PCP Nurse Practitioner; Visit Provider Nurse Practitioner | DX: F41.1 Generalized anxiety disorder (principal); F17.200 Nicotine dependence, unspecified, uncomplicated; J44.9 Chronic obstructive pulmonary disease, unspecified; E78.1 Pure hyperglyceridemia | CPT/HCPCS: 80053 ==

== ENCOUNTER → 2025-05-16 12:33 | Outpatient (BNVA) | payer MEDICARE, MEDICAID, SELFPAY | PROVIDERS: PCP Nurse Practitioner; Visit Provider Nurse Practitioner | DX: E78.1 Pure hyperglyceridemia (principal); Z12.5 Encounter for screening for malignant neoplasm of prostate; N18.2 Chronic kidney disease, stage 2 (mild); E55.9 Vitamin D deficiency, unspecified | CPT/HCPCS: 80053; 80061; 82306; G0103 ==

== ENCOUNTER 2025-05-26 22:17 | Emergency (ER) | payer MEDICARE, MEDICAID, SELFPAY ==
--- OUTSIDE RECORDS SUMMARY | 2024-08-05 04:00 | XMS_ITS ---
Author Organization [facility] Address [address] [place] [address] Care Team Providers Care Payroll Master Name Role Phone Cali Rehman Unavailable [phone] Migration, Provider Unavailable Unavailable REASON FOR VISIT EMR-Vivek Encounters Encounter Location Date Provider Diagnosis Migrated_Facility 0 0 08/05/2024 Provider Migration Plan Of Treatment Medication Medication Name Sig Start Date Stop Date Notes Xtampza ER 13.5 mg oral capsule,sprinkle,ER 12hr tmprr 1 Capsule Twice a Day 03/03/2022 04/02/2022 *Reorder from [facility] for eRx and Interaction Alerts* oxyCODONE HCl 10 MG Tablet 1 Tablet Every 6 Hours PRN Oral 03/03/2022 04/02/2022 Progress Notes * Arthur TRUJILLO LDOB:1970 (54 yo M)Acc No.[id number]:08/05/2024 Patient: Arthur SPICER :1970 A ge:54 Y S ex:Male Address:[address] [place] [id number] * Refills Stop oxyCODONE HCl Tablet, 10 MG, Oral, 1 Tablet Every 6 Hours PRN Stop Xtampza ER 13.5 mg oral capsule,sprinkle,ER 12hr tmprr, 1 Capsule Twice a Day Subjective: * Chief Complaints: * E MR-Vivek * * Date:
--- OUTSIDE RECORDS SUMMARY | 2024-08-06 04:00 | XMS_ITS ---
Author Organization [facility] Address [address] [place] [address] Care Team Providers Care Lead Pastor Name Role Phone Cali Rehman Unavailable [phone] Migration, Provider Unavailable Unavailable REASON FOR VISIT [facility] [place] Medication SIG (Take, Route, Frequency, Duration) Notes Start Date End Date Status Lansoprazole *[facility]* Active Tylenol *[facility] for [facility]* Active Albuterol Sulfate *[facility] -form [facility]* Active Social History Social History Additional Details Category Social Info Options Details Migrated Social History Migrated Social History Alcoholic beverages? - No, Applying for disability? - No, Currently on disability? - Yes, Drug or substance abuse? - No, Education - Grade School, exposure to toxins/poisonous substances at work - No, I am interested in quitting. - Yes, Involved in any legal proceedings or lawsuits? - No, Marital Status - single, Nonprescription drug use? - No, Participation in detoxification or rehabilitation - No, Smoking - 1/2 PPD, Smoking status (MU) - Current every day smoker, Working currently? - No Encounters Encounter Location Date Provider Diagnosis Migrated_Facility 0 0 08/06/2024 Provider Migration Plan Of Treatment No Information Progress Notes * Arthur TRUJILLO LDOB:1970 (54 yo M)Acc No.[id number]:08/06/2024 Patient: Arthur SPICER Ariel :1970 A ge:54 Y S ex:Male Address:[address] [place] [id number] Subjective: * Chief Complaints: * E MR-Vivek * Medical History: Depressed, M igraine, * Social History: M igrated Social History: M igrated Social History: Alcoholic beverages? - No, A pplying for disability? - No, C urrently on disability? - Yes, D rug or substance abuse? - No, E ducation - Grade School, e xposure to toxins/poisonous substances at work - No, I am interested in quitting. - Yes, I nvolved in any legal proceedings or lawsuits? - No, M arital Status - single, N onprescription drug use? - No, P articipation in detoxification or rehabilitation - No, S moking - 1/2 PPD, S moking status (MU) - Current every day smoker, W orking currently? - No. * Medications: T akingLansoprazole , Notes to Pharmacist: *Pick strength-form from [facility] for eRX*Albuterol Sulfate , Notes to Pharmacist: *Pick strength-form from [facility] for eRX*Tylenol , Notes to Pharmacist: *Pick strength-form from [facility] for eRX*Taking Lansoprazole , Notes to Pharmacist: *Pick strength-form from [facility] for eRX*Taking Albuterol Sulfate , Notes to Pharmacist: *Pick strength-form from [facility] for eRX*Taking Tylenol , Notes to Pharmacist: *Pick strength-form from [facility] for eRX* * * Date:
[2025-05-26 22:23] VITALS: BP 137/80; PULSE 100; RESP 18; TEMP 36.8; O2SAT 98; BMI 26.3
--- OUTSIDE RECORDS SUMMARY | 2025-05-26 22:26 | XMS_ITS | Patient Health Record ---
Author Organization [facility] Address [address] [place] [address] Care Team Providers Care Document Processor Name Role Phone Cali Rehman Unavailable [phone] Migration, Provider Unavailable Unavailable Reason For Referral No Information Medications Medication SIG (Take, Route, Frequency, Duration) Notes Start Date End Date Status Lansoprazole *Pick strength-f orm from [employer] for eRX* Active oxyCODONE HCl Active Tylenol *Pick strength-f orm from [employer] for eRX* Active Albuterol Sulfate *Pick strength -form from [employer] for eRX* Active Social History Tobacco Use: Social History Observation Description Date Details (start date - stop date) Current Smoker NA - NA Social History Drugs/Alcohol: Social Info Question Answer Notes Alcohol Screen (Audit-C) Did you have a drink containing alcohol in the past year? No Points 0 Interpretation Negative Drugs Have you used drugs other than those for medical reasons in the past 12 months? No Tobacco Use: Social Info Question Answer Notes xTobacco Use/Smoking Are you a current smoker How often do you smoke cigarettes? every day How many cigarettes a day do you smoke? 11-20 Additional Details Category Social Info Options Details [...] every day smoker, Working currently? - No Problems Problem Type SNOMED Code ICD Code Onset Dates Problem Status W/U Status Risk Notes Problem Degeneration of lumbar intervertebral disc (23044868) Degenerative disc disease, lumbar (M51.36) Active confirmed Encounters Encounter Location Date Provider Diagnosis Migrated_Facility 0 0 08/05/2024 Provider Migration Migrated_Facility 0 0 08/06/2024 Provider Migration Plan Of Treatment No Information Insurance Providers Payer Name Payer Address Payer Phone Subscriber Number Group Number Insured Name Patient Relationship to Insured Coverage Start Date Coverage End Date [employer] Commercial - Out of Network [address] [address] [place] [address] [id number] Arthur Trujillo Self - patient is the insured [place] Medicaid [address] [place] [address] [id number] Arthur Trujillo Self - patient is the insured [place] [address] [facility] [place] [address] [id number] Ronnie Arthur Self - patient is the insured Medical (General) History Medical History History ICD Code COPD Depression
--- OUTSIDE RECORDS SUMMARY | 2025-05-26 22:26 | XMS_ITS | Encounter Summary ---
Author Organization [facility] Address [address] [place] [address] Care Team Providers Care Technical Mgr Name Role Phone Jorge Prabhakar MD Primary Care Provider [phone] Encounter Details Date Type Department Care Team (Late st Contact Info) Description 05/22/2025 External Device Data [facility]STRACTION Provider, Abstract NO ADDRESS ON FILE Social History Tobacco Use Types Packs/Day Years Used Date Smoking Tobacco: Every Day Cigarettes Smokeless Tobacco: Never Alcohol Use Standard Drinks/Week Comments Not Currently 0 (1 standard drink = 0.6 oz pur e alcohol) Sex and Gender Information Value Date Recorded Sex Assigned at Not on file 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
--- OUTSIDE RECORDS SUMMARY | 2025-05-26 22:26 | XMS_ITS | Encounter Summary ---
Author Organization [facility] Address [address] [place] [address] Care Team Providers Care Sales Superintendent Name Role Phone Jorge Prabhakar MD Primary Care Provider [phone] Reason for Visit * Reason Onset Date Comments Referral 05/16/2025 Pain Management Patient Communication Encounter Details Date Type Department Care Team (Late st Contact Info) Description 05/16/2025 Telephone [facility] Family Medicine [address] [address] Jorge Prabhakar MD [facility] [address] [address] Referral (Pain Management/); Patient Communication Social History Tobacco Use Types Packs/Day Years Used Date Smoking Tobacco: Every Day Cigarettes Smokeless Tobacco: Never Alcohol Use Standard Drinks/Week Comments Not Currently 0 (1 standard drink = 0.6 oz pur e alcohol) Sex and Gender Information Value Date Recorded Sex Assigned at Not on file 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 Topic: CPA Information Request >> May 22, 2025 8:50 AM Sarah Bhatti wrote: Caller is returning phone call from clinic. Caller Name: Arthur Trujillo Patient/Caregiver Callback Number: Telephone Information: Clinic Left Note In Chart Is there a note from the clinic requesting the caller be transferred when they call back? No Are the credentials of the caregiver who called the patient taproom attendant? Yes Call Notes: Communicated information that is documented in the note. Caller does not want a call back from clinic.Patient was trying to remember the name of the doctor he would like a referral to andwill call back when he thinks of the doctor's name. * Telephone Encounter - Jacqueline Philip LPN - 05/18/2025 8:31 AM CDT 05/18/2025 8:31 AM Attempted to reach patient by phone at [phone] to see where he would like to be referred. Message left on vm to return call. Jacqueline MOSLEY * Telephone Encounter - Jacqueline Philip LPN - 05/16/2025 10:37 AM CDT 05/16/2025 10:37 AM Per ordering provider's comment on Pain Management Referral: Declines referral to Dr. Sloan, transitioning from Dr. Manzano Attempted to reach patient by phone at [phone] to see where he would like to be referred. Message left on vm to return call. If patient returns call please ask where he would like referral sent. Thank you. Jacqueline MOSLEY documented in this encounter Plan of Treatment Not on file documented as of this encounter Visit Diagnoses Not on filedocumented in this encounter Additional Health Concerns Assessment Noted Time PHQ-9 Depression Total Score: 2 05/15/20 3:00 PM CDT documented as of this encounter Care Teams Sales Superintendent Relationship Specialty Start Date End Date Jorge Prabhakar MD [address] [address] PCP - General Family Practice 05/15/25 documented as of this encounter
--- OUTSIDE RECORDS SUMMARY | 2025-05-26 22:26 | XMS_ITS | Encounter Summary ---
Author Organization [facility] Address 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
--- OUTSIDE RECORDS SUMMARY | 2025-05-26 22:26 | XMS_ITS | Encounter Summary ---
Author Organization [facility] Address 

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
--- OUTSIDE RECORDS SUMMARY | 2025-05-26 22:27 | XMS_ITS | Clinical Summary ---
Author Organization [facility] Address [address] [place] [address] Care Team Providers Care Grocery Bagger Name Role Phone Jorge Prabhakar MD Primary Care Provider [phone] Allergies No known active allergies Medications albuterol sulfate HFA 90 mcg/actuation aerosol inhaler INHALE TWO PUFFS INTO LUNGS FOUR TIMES DAILY NEEDED FOR SHORTNESS OF BREATH OR WHEEZING 5 Active Trelegy Ellipta 100-62.5-25 mcg Disk with Device 5 Active lansoprazole (PREVACID) 30 mg Capsule, Delayed Release(E.C.) TAKE ONE CAPSULE BY MOUTH TWICE DAILY. TAKE PROBIOTIC AND MAG OX 5 Active oxyCODONE (ROXICODONE) 10 mg tabletIndicati ons:Chronic midline low back pain with bilateral sciatica,S/P BKA (below knee amputation), right (CMS/HCC),Mora michi limb pain (CMS/HCC) Take 1 Tablet (10 mg) by mouth every 8 hours as needed for Pain, Moderate. Max Daily Amount: 30 mg 90 Tablet 5 Active gabapentin (NEURONTIN) 800 mg tabletIndicati ons:Chronic midline low back pain with bilateral sciatica,S/P BKA (below knee amputation), right (CMS/HCC),Mora michi limb pain (CMS/HCC) Take 1 Tablet (800 mg) by mouth 2 times daily. 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 Push plunger to administer. Call 911. May repeat dose, every 2-3 minutes, if the person does not wake up or breathing is not improved. 1 Each 5 Active oxyCODONE (ROXICODONE) 10 mg tablet TAKE ONE TABLET BY MOUTH EVERY 4 TO 6 HOURS NEEDED FOR PAIN, MAXIMUM DAILY AMOUNT SIX TABLETS, HOLD WITHIN FOUR HOURS OF PLANNED SLEEP (28 DAYS) 5 05/15/20 25 Discontin ued(Reord er) gabapentin (NEURONTIN) 800 mg tablet TAKE ONE TABLET BY MOUTH EVERY TWELVE HOURS (28 DAYS) 5 05/15/20 25 Discontin ued(Reord er) Active Problems Problem Noted Date Diagnosed Date S/P BKA (below knee amputation), right 5 Chronic midline low back pain with bilateral sci atica 05/15/2025 Panlobular emphysema 05/15/2025 Tobacco dependence 05/15/2025 Gastroesophageal reflux disease without esophagi tis 05/15/2025 Phantom limb pain 05/15/2025 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 5 Encounters Date Type Department Care Team Description 05/22/2025 External Device Data [facility] ABSTRACTION Provider, Abstract 05/22/2025 External Device Data [facility] ABSTRACTION Provider, Abstract 05/22/2025 External Device Data [facility] ABSTRACTION Provider, Abstract 05/16/[address] [phone] Jorge Prabhakar MD Referral (Pain Management/); Patient Communication 05/15/2025 3:20 PM CDT Office Visit [address] [phone] Jorge Prabhakar MD Chronic midline low back pain with bilateral sciatica (Primary Dx); S/P BKA (below knee amputation), right (CMS/HCC); Panlobular emphysema (CMS/HCC); Tobacco dependence; Gastroesophageal reflux disease without esophagitis; Phantom limb pain (CMS/HCC); Other [facility] (current) drug therapy from Last 3 Months Social History Tobacco Use Types Packs/Day Years Used Date Smoking Tobacco: Every Day Cigarettes Smokeless Tobacco: Never Tobacco Cessation:Ready to Q uit: Not Asked; Counseling Given: Not Answered Alcohol Use Standard Drinks/Week Comments Not Currently 0 (1 standard drink = 0.6 oz pur e alcohol) Sex and Gender Information Value Date Recorded Sex Assigned at Not on file 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 Gender Identity Not on file Sexual Orientation Not on file Last Filed Vital Signs Vital Sign Reading Time Taken Comments Blood Pressure 122/80 05/15/2025 3:50 PM CDT Pulse 84 05/15/2025 3:50 PM CDT Temperature 36.8 C (98.2 F) 05/15/2025 3:50 PM CDT Respiratory Rate 18 05/15/2025 3:50 PM CDT Oxygen Saturation 98% 05/15/2025 3:50 PM CDT Inhaled Oxygen Concentration - - Weight 77.1 kg (170 lb) 05/15/2025 3:50 PM CDT Height 172.7 cm (5' 8 ) 05/15/2025 3:50 PM CDT Body Mass Index 25.85 05/15/2025 3:50 PM CDT Plan of Treatment Health Maintenance Due Date Last Done Comments Pre-Diabetes and Diabetes Screening 1969 FIT/ DNA Q 3 YEARS (AUTO ORDER) 1987 FIT/FOBT Q 1 YEAR (AUTO ORDER) 1987 FLEX SIG/CT COLONOGRAPHY Q 5 YEARS (AUTO ORDER) 1987 DTAP/TDAP/TD VACCINES (1 - Tdap) 1988 HEPATITIS B VACCINES (1 of 3 - 19+ 3-dose series) 1988 COLORECTAL CANCER SCREENING (AUTO ORDER) 2014 COLORECTAL SCREENING 2014 Colorectal Cancer Screening (AUTO ORDER) 2014 Colorectal Cancer Screening 2014 FIT-DNA Q 3 years 2014 FIT/FOBT Q 1 year 2014 Flex Sig/CT Colonography Q 5 years 2014 ZOSTER VACCINE (1 of 2) 2019 COVID-19 Vaccine ( season) 06/11/202407/2021, 01/17/2021 [place] Prev entative Visit/Annual Wellness Visit 10/11/2024 INFLUENZA VACCINE (#1) 2025 Procedures Procedure Name Priority Date/Time Associated Diagnosis Comments MEDICATION COMPLIANCE DRUG SCREEN Routine 05/15/2025 4:15 PM CDT Other [facility] (current) drug therapy from Last 3 Months Results * (ABNORMAL) MEDICATION COMPLIANCE DRUG SCREEN (05/15/2025 4:15 PM CDT) Summary [facility] Comment: Prescribed Prescribed Not Prescribed Consistent Inconsistent Inconsistent Percocet(TM) Gabapentin Prescribed Drug 1 Percocet(TM) [facility] BUPRENORPHINE (URINE) NEGATIVE <5 ng/mL [facility] Fentanyl NEGATIVE <0.5 ng/mL [facility] Propoxyphene, Urine NEGATIVE <300 ng/mL [facility] MDA (Ecstasy Mtb), Urine NEGATIVE <200 ng/mL [facility] MDMA (Ecstasy), Urine NEGATIVE <200 ng/mL [facility] MDMA Comments [facility] Comment:See LDT Notes Meprobamate, Urine NEGATIVE <1000 ng/mL [facility] [place] Carisoprodol Comments [facility] Comment:See LDT Notes Tapentadol, Urine NEGATIVE <50 ng/mL [facility] Nortapentadol, Urine NEGATIVE <50 ng/mL [facility] Tapentadol Comments [facility] Comment:See LDT Notes O-Desmethyltramado l, Urine NEGATIVE <100 ng/mL [facility] Tramadol, Urine NEGATIVE <100 ng/mL [facility] Tramadol Comments [facility] Comment:See LDT Notes Gabapentin, Urine >761007(H) <1000 ng/mL [facility] medMATCH Gabapentin, Urine INCONSISTENT( A) [facility] Gabapentin Comments [facility] Comment:See Gabapentin Notes , LDT Notes Meperidine, Urine NEGATIVE <100 ng/mL [facility] Normeperidine, Urine NEGATIVE <100 ng/mL [facility] Meperidine Comments [facility] Comment:See LDT Notes PREGABALIN, QUANT URINE NEGATIVE <1000 ng/mL [facility] [place] Pregabalin Comments [facility] Comment:See LDT Notes Alcohol Metabolites, Urine NEGATIVE <500 ng/mL [facility] AMPHETAMINES (URINE) NEGATIVE <500 ng/mL [facility] BARBITURATES (URINE) NEGATIVE <300 ng/mL [facility] BENZODIAZEPINES (URINE) NEGATIVE <100 ng/mL [facility] COCAINE & METABOLITE (URINE) NEGATIVE <150 ng/mL [facility] 6 ACETYLMORPHINE, URINE NEGATIVE <10 ng/mL [facility] CANNABINOIDS QUAL, URINE NEGATIVE <20 ng/mL [facility] Methadone Metabolite, Urine NEGATIVE <100 ng/mL [facility] OPIATE CLASS (URINE) NEGATIVE CONFIRMED <100 ng/mL [facility] Codeine, Urine NEGATIVE <50 ng/mL [facility] Hydrocodone, Urine NEGATIVE <50 ng/mL [facility] Hydromorphone, Urine NEGATIVE <50 ng/mL [facility] Morphine, Urine NEGATIVE <50 ng/mL [facility] Norhydrocodone, Urine NEGATIVE <50 ng/mL [facility] OPIATES, COMMENT [facility] Comment:See LDT Notes OXYCODONE CLASS (URINE) POSITIVE(A) <100 ng/mL [facility] Noroxycodone, Urine 4581(H) <50 ng/mL [facility] medMATCH Noroxycodone, Urine CONSISTENT [facility] [place] Oxycodone, Urine 2166(H) <50 ng/mL [facility] medMATCH Oxycodone, Urine CONSISTENT [facility] Oxymorphone, Urine 1847(H) <50 ng/mL [facility] medMATCH Oxymorphone, Urine CONSISTENT [employer] [facility] Oxycodone Comments [facility] Comment:See Oxycodone Notes, LDT Notes PHENCYCLIDINE, URINE NEGATIVE <25 ng/mL [facility] Creatinine, Urine 89.3 > or = 20.0 mg/dL [facility] PH 6.1 4.5 - 9.0 [facility] OXIDANT, URINE NEGATIVE <200 mcg/mL [facility] ZOLPIDEM, URINE NEGATIVE <5 ng/mL [facility] Zolipidem Metabolite, Urine NEGATIVE <5 ng/mL [facility] Zolpidem Comments [facility] Comment:See LDT Notes COMMENT TOXICOLOGY [facility] Comment: This drug testing is for medical treatment only. Analysis was performed as non-forensic testing and these results should be used only by healthcare providers to render diagnosis or treatment, or to monitor progress of medical conditions. Gabapentin Notes: Gabapentin detected is consistent with the use of the drug Gabapentin. Oxycodone Notes: Oxycodone, Noroxycodone, Oxymorphone detected is consistent with the use of the drug Oxycodone. Oxymorphone detected is consistent with the use of the drug Oxymorphone. Oxymorphone can be a prescribed drug and is also a metabolite of Oxycodone. LDT Notes: Confirmation tests were developed and their analytical performance characteristics have been determined by [facility]. It has not been cleared or approved by the FDA. This assay has been validated pursuant to the CLIA regulations and is used for clinical purposes. medMATCH(R) enables providers to identify if drug use is consistent or inconsistent with a corresponding prescribed medication(s) list. Healthcare Providers needing Interpretation assistance, please contact us at [phone] ( ) M-F, 8am to 10pm EST Test Performed at: [facility] [address] Harpreet HAJI Urine URINE SPECIMEN OBTAINED BY CLEAN CATCH PROCEDURE / Unknown 05/15/2025 4:15 PM CDT 05/16/2025 3:41 AM CDT Jorge Prabhakar MD URINE ORDERABLES Final Re sult [facility] [phone] [facility] [address] [place] [address] from Last 3 Months Insurance [employer] O DSNP MCR Care Teams Grocery Bagger Relationship Specialty Start Date End Date Jorge Prabhakar MD [address] [phone] PCP - General Family Practice 05/15/25
== END 2025-05-27 02:04 | disposition left against medical advice (07) ==
PROVIDERS: Emergency Provider Family Medicine; PCP Nurse Practitioner
DX: Z53.21 Procedure and treatment not carried out due to patient leaving prior to being seen by health care provider (principal)